=== PATIENT | female | born 1975 | race Caucasian/White ===

== ENCOUNTER → 2024-06-03 | Outpatient (CLI) | payer MEDICARE, SELFPAY ==
--- NOTE | 2024-06-03 | XR_ITS ---
Examination: Abdomen sonogram, complete Date and time of exam: June 03, 2024 1258 hours INDICATIONS: Generalized abdominal pain beginning several months ago, bloating one week. Technique: Multiple real-time grayscale transabdominal sonographic images of the abdomen have been obtained. Findings: Absent gallbladder Normal common bile duct 0.5 cm Pancreatic head 3.2 cm Aorta not enlarged Liver 18.5 cm fatty infiltration smooth contour no focal liver lesions Normal hepatopedal portal venous flow Patent IVC Right kidney 10.8 x 5.5 x 5.6 cm renal cortex 1.9 cm Left kidney 10.0 x 5.5 x 5.0 cm cortex 2.0 cm Mild bilateral renal parenchymal scar formation No hydronephrosis Spleen 6.1 cm IMPRESSION: Absent gallbladder Mild hepatomegaly fatty liver Mild bilateral renal parenchymal scar formation
== END | disposition home or self-care (01) ==
PROVIDERS: PCP Nurse Practitioner Family; Referring Provider Nurse Practitioner Family; Visit Provider Nurse Practitioner Family
DX: K76.0 Fatty (change of) liver, not elsewhere classified (principal); N28.89 Other specified disorders of kidney and ureter
CPT/HCPCS: 76700